=== PATIENT | male | born 1950 | race Caucasian/White ===

== ENCOUNTER 2020-02-10 13:45 | Outpatient (REF) | payer OTHER, SELFPAY ==
--- NOTE | 2020-02-10 | US_ITS ---
EXAMINATION: US EXTRACRANIAL CAROTID DUPLEX, BILATERAL CLINICAL INFORMATION: Stroke. COMPARISON: None TECHNIQUE: Real-time ultrasound and Doppler techniques (integrating B-mode 2-D vascular images, Doppler spectral analysis and color-flow Doppler imaging) were utilized to interrogate the extracranial carotid arteries, the vertebral arteries and proximal subclavian arteries bilaterally. The degree of stenosis is determined by criteria similar to NASCET. FINDINGS: RIGHT SIDE: 1. There is soft atherosclerotic plaque seen in the bifurcation/proximal ICA region. 2. The common carotid artery PSV proximally is 91.5 cm/s and distally 76.2 cm/s. 3. The proximal internal carotid artery velocities are 62.5 cm/s systolic and 13.4 cm/s diastolic. 4. The proximal external carotid artery PSV is 87.9 cm/s. 5. The vertebral artery shows antegrade flow. 6. The subclavian artery waveforms are normal. LEFT SIDE: 1. There is soft atherosclerotic plaque seen in the bifurcation/proximal ICA region. 2. The common carotid artery PSV proximally is 158 cm/s and distally 80.9 cm/s. 3. The proximal internal carotid artery velocities are 63.6 cm/s systolic and 8.6 cm/s diastolic. 4. The proximal external carotid artery PSV is 64.8 cm/s. 5. The vertebral artery shows antegrade flow. 6. The subclavian artery waveforms are normal. US/US carotid duplex BI IMPRESSION: 1. RIGHT: 0-49% stenosis. 2. LEFT: 0-49% stenosis. 3. Normal antegrade flow seen in both vertebral arteries.
== END 2020-02-10 13:46 | disposition home or self-care (01) ==
LOC: HO.HMGCX 13:45
PROVIDERS: Visit Provider Psychiatry & Neurology Neurology
DX: Z86.73 Personal history of transient ischemic attack (TIA), and cerebral infarction without residual deficits (principal)
CPT/HCPCS: 93880

== ENCOUNTER 2020-06-15 12:30 | Outpatient (REF) | payer OTHER, MEDICAID, SELFPAY ==
[2020-06-15 12:35] VITALS: BMI 23.8
[2020-06-15 12:36] VITALS: BP 141/69; PULSE 67; RESP 16; TEMP 36.9; O2SAT 96
== END 2020-06-15 12:31 | disposition home or self-care (01) ==
LOC: HO.MS 12:30
PROVIDERS: PCP Internal Medicine; Visit Provider Ophthalmology
PROC: (CPT 66821; principal; 2020-06-15 16:20)
DX: H26.491 Other secondary cataract, right eye (principal); H34.8310 Tributary (branch) retinal vein occlusion, right eye, with macular edema; Z96.1 Presence of intraocular lens; I10 Essential (primary) hypertension; Z79.899 Other long term (current) drug therapy; Z87.891 Personal history of nicotine dependence
CPT/HCPCS: 66821

== ENCOUNTER 2020-06-29 11:58 | Outpatient (REF) | payer OTHER, MEDICAID, SELFPAY ==
[2020-06-29 12:47] VITALS: BP 150/71; PULSE 53; RESP 16; TEMP 36.9; O2SAT 97
[2020-06-29 13:27] VITALS: BMI 29.2
== END 2020-06-29 11:59 | disposition home or self-care (01) ==
LOC: HO.MS 11:58
PROVIDERS: PCP Internal Medicine; Visit Provider Ophthalmology
PROC: (CPT 66821; principal; 2020-06-29 15:10)
DX: H26.492 Other secondary cataract, left eye (principal); H34.8310 Tributary (branch) retinal vein occlusion, right eye, with macular edema; Z96.1 Presence of intraocular lens; I10 Essential (primary) hypertension; Z87.891 Personal history of nicotine dependence; Z79.899 Other long term (current) drug therapy
CPT/HCPCS: 66821

== ENCOUNTER 2023-11-08 16:15 | Emergency (ER) | payer OTHER, MEDICAID, SELFPAY ==
--- NOTE | 2023-11-08 | ECG_ITS ---
Test Reason : WEAKNESS Blood Pressure : / mmHG Vent. Rate : 066 BPM Atrial Rate : 066 BPM P-R Int : 182 ms QRS Dur : 088 ms QT Int : 416 ms P-R-T Axes : 043 -26 014 degrees QTc Int : 436 ms Normal sinus rhythm Minimal voltage criteria for LVH, may be normal variant ( Omero product ) Borderline ECG When compared with ECG of 08-APR-2017 10:36, No significant change was found Referred By: Lane Collins Electronically Signed By:JAMES FORD
--- NOTE | ~2023-11-08 | CT_ITS ---
EXAMINATION: CT HEAD WITHOUT IV CONTRAST CT CERVICAL SPINE WITHOUT IV CONTRAST INDICATION: Fall from standing COMPARISON: None available. TECHNIQUE: Multidetector CT acquisitions of the head and cervical spine were obtained without IV contrast. Multiplanar reformats were acquired and utilized for image interpretation. This CT examination was performed using dose optimization techniques as appropriate, variously including the following: *Automated exposure control *Adjustment of mA and/or kV according to patient size (this includes techniques or standardized protocols for targeted exams where dose is matched to indication/reason for exam; i.e. extremities or head) *Use of iterative reconstruction technique FINDINGS: HEAD: No acute intracranial hemorrhage or infarct. The bond-white matter differentiation is preserved. Patchy hypodensity involving the periventricular and deep white matter compatible with small vessel ischemic disease. Encephalomalacic changes in the left frontal lobe. Diffuse widening of the sulci with associated ex focal dilation of the ventricles compatible with global cerebral atrophy. No midline shift or hydrocephalus. No acute extra-axial fluid collections. The osseous structures are unremarkable. Sequela of bilateral lens replacement. Otherwise, no acute orbital pathology. Mild mucosal thickening of the paranasal sinuses. The mastoid air cells are clear. Atherosclerotic calcifications of the bilateral carotid siphons and visualized intracranial vertebral arteries. CERVICAL SPINE: There is anatomic alignment of the vertebral bodies and posterior elements. There is no acute fracture and there is no acute subluxation. The craniocervical and atlantoaxial articulations are approximated. There is no prevertebral soft tissue swelling. No significant soft tissue abnormality within the neck. The visualized lung apices are clear. CT/CT cervical spine wo IV con IMPRESSION: -No acute intracranial abnormality. -No acute osseous abnormality within the cervical spine. Electronically signed by: Elisa Huggins MD 11/08/2023 06:58 PM EDT
--- NOTE | ~2023-11-08 | CT_ITS ---
EXAMINATION: CT CHEST WITHOUT CONTRAST CLINICAL INFORMATION: Mid anterior chest pain and weakness COMPARISON: Chest radiograph 02/28/2017 TECHNIQUE: Multidetector volumetric CT imaging of the chest was done. Axial MIP volume rendering provided. Sagittal and coronal reformatted images were obtained. This CT examination was performed using dose optimization techniques as appropriate, variously including the following: *Automated exposure control *Adjustment of mA and/or kV according to patient size (this includes techniques or standardized protocols for targeted exams where dose is matched to indication/reason for exam; i.e. extremities or head) *Use of iterative reconstruction technique DLP: 373 mGy-cm FINDINGS: LUNGS: Multiple scattered calcified pulmonary granulomas are present. No suspicious noncalcified lung masses or nodules. MEDIASTINUM: The mediastinum is normal. CORONARY ARTERY CALCIFICATION: None visualized on this study. PLEURA: There is no pleural effusion. No pleural mass or thickening. AXILLA: No lymphadenopathy. UPPER ABDOMEN: There are colonic diverticula present without diverticulitis. Contracted gallbladder. OSSEOUS STRUCTURES: Unremarkable. CT/CT chest wo IV con IMPRESSION: 1. A cause for the patient's chest pain and weakness has not been found. 2. Incidental note made of calcified pulmonary granulomas and colonic diverticulosis. Fleischner guidelines were followed. Electronically signed by: Sam Miller MD 11/08/2023 08:23 PM EDT
[2023-11-08 16:26] VITALS: BP 159/79; PULSE 69; O2SAT 97; BMI 24.6
--- NOTE | 2023-11-08 16:30 | PC.NURSE ---
weaving instructor services called, delay in care d/t only having one in hospital at this time
--- NOTE | 2023-11-08 16:31 | ED_ITS ---
HPI - General Adult General Chief complaint: Fall Stated complaint: feeling weak the last few days, fall today -loc Time Seen by Provider: 11/08/23 16:16 Source: patient and EMS Mode of arrival: EMS Limitations: language barrier (English-speaking foam molder utilized) History of Present Illness HPI narrative: Patient is a 73-year-old male who presents emergency department via EMS for evaluation. He reports that over the past few days he has been feeling weak. He endorses a trip on a who in the ground resulting in a fall outside of his home on the sidewalk which per EMS was witnessed by his neighbors, resulting in majority of impact to his chest, now having pain diffusely through the mid anterior chest. He denies any head strike or loss consciousness with this fall. He denies any headache, dizziness, lightheadedness, vision changes, neck pain, pain to his upper or lower extremities. Related Data Allergies Allergy/AdvReac Type Severity Reaction Status Date / Time No Known Allergies Allergy Unverified 11/08/23 16:28 [No Known Allergies*] Review of Systems 2 Review of Systems: Yes all other systems are reviewed and are negative [facility] Past Medical History Attestation statement: The following information was validated with the patient. Source: old records reviewed Social History Social History Smoked in Last 30 Days: No Use of substances other than those prescribed or required for medical reasons: No Advance Directives: No Advance Directives Information Provided: No Do you have a plan to hurt others: No Plan Physical Exam ED Vital Signs: Vital Signs - 24 hr 11/08/23 16:48 11/08/23 20:39 11/08/23 21:31 Temperature 98.5 F 98.5 F 98.5 F Pulse Rate 60 60 60 Respiratory Rate 12 16 16 Blood Pressure 176/71 H 165/64 H 165/64 H Pulse Oximetry 98 97 97 Oxygen Delivery Method Room Air Room Air Room Air BMI result Body Mass Index 24.6 Appearance: Alert.?Oriented to person, place and time. No acute distress.?Normal affect. Head: Normocephalic Eyes: Pupils equal, round and reactive to light. EOMI. Conjunctiva and sclera normal? No Reyes sign noted. No raccoon eyes noted ENT: No septal hematoma, nares patent bilaterally. External auditory canal normal tympanic membrane pearly bond and intact bilaterally. Dentition normal, no fractured teeth. No lesions or lacerations of oropharynx. Uvula midline. Moist mucous membranes. Neck: Normal inspection.? Neck supple.??No palpable tenderness, step-off, deformities. CVS: Heart sounds normal. Normal heart rate and rhythm.? Pulses normal.?? Respiratory: No respiratory distress.? Lung sounds clear to auscultation bilaterally. No palpable deformities of the chest wall. Abdomen: Soft and non-tender. Normoactive bowel sounds. ??No CVAT. Back: No midline thoracic or lumbar spine tenderness, step-offs, deformities Skin: Skin warm and dry.? Normal skin color.? ? Extremities: No lower extremity edema.? Full range of motion to bilateral upper and lower extremities Neuro: Moves all extremities spontaneously. Sensation intact bilaterally. CN II- XII intact. No focal neuro deficits. Course Reevaluation(s) Reevaluation #1: CT imaging unremarkable. Workup unremarkable. Ambulatory with a steady gait. Stable for discharge home, made aware of incidental finding calcified granulomas and outpatient follow-up with primary care doctor. Provided with return precautions. All questions answered. Medical Decision Making Medical Decision Making [facility] Narrative: Patient is a 73-year-old male with unclear past medical history, states that he takes a couple of medications daily but does not recall what they are for, does not know pharmacy uses, does not believe he is on any blood thinners. Had a reported mechanical trip and fall today as per HPI with resultant pain diffusely through his anterior chest. Reports he has been feeling a bit weak over the past few days, but denies any prodromal symptoms prior to the fall. Will obtain serum labs and radiographic imaging. Will medicate acetaminophen Differential Diagnosis Differential Diagnoses: The differential diagnosis associated with the presentation includes (ICH, SDH, fracture, subluxation, rib fracture, ACS, rib contusion) Admission/Observation Consideration of admission/observation: Escalation of care including admission/observation considered Lab Data [facility] Lab Attestation statement: I reviewed the patient's lab results. CBC is without leukocytosis anemia or thrombocytopenia. No electrolyte derangement. No DENNIS. LFTs unremarkable. Magnesium within normal range. High sensitive troponin below detectable limits. Alcohol level negative. Viral serologies negative. 11/08/23 17:09 11/08/23 17:09 Labs: Lab Results 11/08/23 Range/Units 17:09 WBC 8.9 (4.8-10.8) X10*3/uL RBC 4.33 L (4.60-5.80) X10*6/uL Hgb 14.0 (14.0-18.0) g/dl Hct 41.4 L (42.0-52.0) % MCV 95.6 (80.0-98.0) fL MCH 32.3 (27.0-33.0) pg MCHC 33.8 (31.0-36.0) g/dl RDW 12.6 (11.0-16.0) % Plt Count 187 (160-400) X10*3/uL MPV 10.3 (9.4-12.4) fL Immature Gran % (Auto) 0.3 (0.0-0.4) % Neut % (Auto) 71.0 (45-73) % Lymph % (Auto) 10.3 L (20-40) % [place] % (Auto) 6.2 (2-11) % Eos % (Auto) 11.9 H (0-4) % Baso % (Auto) 0.3 (0-2) % Lymph # (Auto) 0.9 L (1.2-4.9) X10*3/uL [place] # (Auto) 0.6 (0.1-1.2) X10*3/uL Eos # (Auto) 1.1 H (0.0-0.4) X10*3/uL Baso # (Auto) 0.0 (0.0-0.2) X10*3/uL Abs Immat Gran (auto) 0.03 (0.00-0.03) X10*3/uL Absolute Neuts (auto) 6.4 (2.0-8.3) x10*3/uL Absolute Nucleated RBC 0.000 (0.0-0.012) X10*3/uL Nucleated RBC % (auto) 0.0 (0.0-0.2) /100WBC PT 12.4 (10.9-12.4) SEC INR 1.1 (0.9-1.1) Sodium 142 (135-145) mmol/L Potassium 4.9 (3.3-5.1) mmol/L Chloride 105 (96-108) mmol/L Carbon Dioxide 28 (22-29) mmol/L Anion Gap 14 (12-20) BUN 17 H (9-16) mg/dL Creatinine 1.11 (0.5-1.4) mg/dL Estim Creat Clear Calc 45.7 Estimated GFR > 60 Random Glucose 99 (60-115) mg/dL Calcium 9.7 (8.4-10.2) mg/dL Magnesium 2.0 (1.6-2.6) mg/dL Total Bilirubin 0.5 (0.0-1.0) mg/dL AST 22 (5-37) U/L ALT 24 (0-40) U/L Alkaline Phosphatase 64 (39-117) U/L Troponin I High Sens < 2.7 (<3.5-35.0) ng/L B-Natriuretic Peptide 34 (<100) pg/mL Total Protein 7.7 (6.5-8.0) g/dL Albumin 4.1 (3.5-5.0) g/dL Ethyl Alcohol < 10 mg/dL Influenza Type A (PCR) NEGATIVE (Negative) Influenza Type B (PCR) NEGATIVE (Negative) RSV RNA Qual (PCR) NEGATIVE (Negative) SARS-CoV-2 RNA (RT-PCR) NEGATIVE (Negative) Independent Interpretation I performed an independent interpretation of an: EKG Interpretation: Rate: 66 Rhythm:? Normal sinus rhythm Normal P waves.? Normal SEKOU.?? Normal QRS complex.?? ST T wave :??No ST elevation, no ST depression [id number] prior studies:? Unavailable for review The study has been interpreted contemporaneously by me. Radiology Impression Discussion of test interpretation with radiology: I have reviewed the radiologist's reading. Radiologist Impression: CT/CT head/brain wo IV con IMPRESSION: -No acute intracranial abnormality. -No acute osseous abnormality within the cervical spine. CT/CT chest wo IV con IMPRESSION: 1. A cause for the patient's chest pain and weakness has not been found. 2. Incidental note made of calcified pulmonary granulomas and colonic diverticulosis. Independent Historian Clinical information obtained from an independent historian. History obtained from or confirmed by: EMS Discharge Plan Discharge Clinical Impression: Contusion of chest, Acute head injury without loss of consciousness Patient Disposition: Home, Self-Care Instructions: Head Injury (ED), Rib Contusion (ED) Additional Instructions: Imaging today does not show any evidence of bleeding in the brain, fracture to the skull neck or chest. All of which is very reassuring. There was an incidental finding on your chest CT of calcified pulmonary granulomas, a benign condition but can result in difficulties with breathing, you should make your primary care doctor aware of this You can develop a lot of pain due to inflammation in the setting of an injury such as what you sustained today. You can take Tylenol 500 mg, 2 tablets (1,000mg) every 4-6 hours as needed for pain, but not to exceed 3 doses daily (3,000mg).? Referrals: Physician,Unknown J [Primary Care Provider] - Interventions: ED Discharge Assessment Last Done: 11/08/23 21:31 Discharge Date/Time: 11/08/23 21:33 Print Language: English
[2023-11-08 16:48] VITALS: BP 176/71; PULSE 60; RESP 12; TEMP 36.9; O2SAT 98
[2023-11-08 17:15] LABS: MANUAL DIFF FLAG NO
[2023-11-08 17:21] LABS: Basophils Percent Auto 0.3 % (0-2); Eosinophils Absolute Auto 1.1 X10*3/uL (0.0-0.4); Eosinophils Percent Auto 11.9 % (0-4); Hematocrit 41.4 % (42.0-52.0); Imm Gran Abs Auto 0.03 X10*3/uL (0.00-0.03); Imm Gran Pct Auto 0.3 % (0.0-0.4); Lymphocytes Absolute Auto 0.9 X10*3/uL (1.2-4.9); Lymphocytes Percent Auto 10.3 % (20-40); Mean Corpuscular HGB Conc 33.8 g/dl (31.0-36.0); Mean Corpuscular Hemoglobin 32.3 pg (27.0-33.0); Mean Corpuscular Volume 95.6 fL (80.0-98.0); Mean Platelet Volume 10.3 fL (9.4-12.4); Monocytes Absolute Auto 0.6 X10*3/uL (0.1-1.2); Monocytes Percent Auto 6.2 % (2-11); Neutrophils Absolute Auto 6.4 x10*3/uL (2.0-8.3); Platelet Count 187 X10*3/uL (160-400); Red Blood Count 4.33 X10*6/uL (4.60-5.80); Red Cell Distribution Width 12.6 % (11.0-16.0); White Blood Count 8.9 X10*3/uL (4.8-10.8)
[2023-11-08 17:25] LABS: INTERNATIONAL NORM RATIO 1.1 (0.9-1.1); Prothrombin Time 12.4 SEC (10.9-12.4)
[2023-11-08 17:33] LABS: Ethanol < 10 mg/dL
[2023-11-08 17:34] LABS: Alanine Aminotransferase 24 U/L (0-40); Albumin Level 4.1 g/dL (3.5-5.0); Alkaline Phosphatase 64 U/L (39-117); Anion Gap 14 (12-20); Aspartate Amino Transferase 22 U/L (5-37); Bilirubin Total 0.5 mg/dL (0.0-1.0); Blood Urea Nitrogen 17 mg/dL (9-16); Calcium 9.7 mg/dL (8.4-10.2); Carbon Dioxide 28 mmol/L (22-29); Chloride 105 mmol/L (96-108); Creatinine Clr Calc Pharmacy 45.7; Estimated Glomerular Filt Rate > 60; Glucose Random 99 mg/dL (60-115); Potassium 4.9 mmol/L (3.3-5.1); Sodium 142 mmol/L (135-145); Total Protein 7.7 g/dL (6.5-8.0)
[2023-11-08 17:42] LABS: Troponin-I High Sensitivity < 2.7 ng/L (<3.5-35.0)
[2023-11-08 17:58] LABS: Influenza A PCR NEGATIVE (Negative); Influenza B PCR NEGATIVE (Negative); Resp Syncy Virus RNA Qual PCR NEGATIVE (Negative); SARS COV2 PCR INHOUSE NEGATIVE (Negative)
--- OUTSIDE RECORDS SUMMARY | 2023-11-08 18:13 | XMS_ITS | Continuity of Care Document ---
Author Organization [facility] Address [address] [place] [id number]- Care Team Providers Care Health And Wellness Advisor Name Role Phone Vicenta Ramírez MD Primary Care Physician [place] [facility] [place] 10[place]20 - 12/25/20 [facility] [address] [place] [id number] Attending Physician: Willie Casas MD Admitting Physician: Willie Casas MD Referring Physician: Vicenta Ramírez MD Allergies, Adverse Reactions, Alerts Substance Reaction Severity Status NKA Active Immunizations Given and Recorded Vaccine Date Status Refusal Reason SARS-CoV-2 (COVID-19) mRNA BNT-162b2 vac 07/09/20 Given SARS-CoV-2 (COVID-19) mRNA BNT-162b2 vac 06/18/20 Given tetanus/diphtheria/pertussis, acel(Tdap) 02/22/18 Given Medications Calcium 600 +D oral tablet 1 tablet, By Mouth, 3 times a day, 0 Refills, Maintenance Start Date: 02/13/13 Status: Ordered codeine-guaifenesin 10 mg-100 mg/5 ml oral syrup 10 mL, By Mouth, Every 4 hours, PRN for cough, # 100 mL, 0 Refills, Maintenance, Syrup Start Date: 01/31/13 Status: Ordered Donepezil By Mouth, Daily at bedtime, 0 Refills, Maintenance, 05/24/16 11:36:58 Start Date: 05/24/16 Status: Ordered Metoprolol 0 Refills, Maintenance Start Date: 02/13/13 Status: Ordered Naproxen = 500 mg, By Mouth, 2 times a day, PRN as needed for pain, 0 Refills, Maintenance Start Date: 01/26/11 Status: Ordered PEG-3350 with Electrolytes (Eqv-GoLYTELY) oral powder for reconstitution See Instructions, Mix powder with water according to package intructions. Drink all of the prep fluid on the evening befoer your colonoscopy., # 1 each, 0 Refills, Maintenance, 12/03/20 18:15:00 EDT,Partial fill upon patient request if the prescript... Start Date: 12/03/20 Status: Ordered Percocet-5/325 325 mg-5 mg oral tablet 1 to 2 tablet, By Mouth, Every 4 hours, PRN Pain , Severe, # 12 tablet, 0 Refills, Maintenance Start Date: 11/28/10 Status: Ordered Percocet-5/325 325 mg-5 mg oral tablet 2, tablet, By Mouth, Every 6 hours, PRN, # 10 tablet, Refills 0, Tot. Refills 0, Maintenance, for pain, 02/23/18 0:19:52 EST, Print Requisition, Tablet Start Date: 02/23/18 Status: Ordered Senna 1 tab, By Mouth, 2 times a day, 0 Refills, Maintenance Start Date: 03/16/11 Status: Ordered Social History Social History Type Response Smoking Status Former smoker, quit more than 30 days ago entered on: 07/09/18 Sex
--- OUTSIDE RECORDS SUMMARY | 2023-11-08 18:13 | XMS_ITS | Continuity of Care Document ---
Author Organization [facility] Address [address] [place] [id number]- Care Team Providers Care Steel Post Installer Name Role Phone Matt Schumacher MD Primary Care Physician Encounter [place] Date(s): 04/27/21 - 04/27/[address] [id number] Discharge Disposition: A-D/C Home Attending Physician: Willie Casas MD Admitting Physician: Willie Casas MD Referring Physician: Willie Casas MD Allergies, Adverse Reactions, Alerts No Known Allergies Immunizations Given and Recorded Vaccine Date Status [...] on the evening befoer your colonoscopy., # 4,000 mL, 0 Refills, Maintenance, 04/26/21 9:12:00 EDT, [id number], Please fill with ANY... Start Date: 04/26/21 Status: Ordered Percocet-5/325 325 mg-5 mg oral [...] Refills, Maintenance Start Date: 03/16/11 Status: Ordered Procedures Procedure Date Related Diagnosis Body Site Status Colonoscopy with polypectomy 04/27/21 Completed Vital Signs Most recent to oldest [Reference Range]: 1 2 3 Height 160 cm (04/27/21 12:59 PM) Weight 63.5 kg (04/27/21 12:59 PM) Oxygen Saturation [94-100 %] 100 % (04/27/21 3:46 PM) 98 % (04/27/21 12:59 PM) Pulse Rate [55-90 bpm] 63 bpm (04/27/21 12:59 PM) Body Mass Index [18.5-24.99] 24.8 (04/27/21 12:59 PM) Blood Pressure [90-138/55-84 mm Hg] 116/59mm Hg (04/27/21 3:46 PM) 189/78mm Hg *H* (04/27/21 12:59 PM) Respiratory Rate [16-30 br/min] 16 br/min (04/27/21 3:46 PM) 16 br/min (04/27/21 12:59 PM) Temperature [96.8-100.4 DegF] 98.7 DegF (04/27/21 12:59 PM) Mode of Delivery (Oxygen) Room air (04/27/21 4:10 PM) Room air (04/27/21 3:46 PM) Room air (04/27/21 12:59 PM) Blood pressure sites Arm, left (04/27/21 3:46 PM) Arm, left (04/27/21 12:59 PM) Temperature Route Temporal (04/27/21 12:59 PM) Weight Obtained Via Patient/family state d (04/27/21 12:59 PM) Social History Social History Type Response Smoking Status Former smoker, quit more than 30 days ago entered on: 07/09/18 Sex
--- OUTSIDE RECORDS SUMMARY | 2023-11-08 18:13 | XMS_ITS | Continuity of Care Document ---
Author Organization [facility] Address [address] [place] [id number]- Care Team Providers Care Radio Station Manager Name Role Phone Not on Staff, PCP Primary Care Physician Unavail able Encounter [facility] Date(s): 11/23/22 - 11/24/[address] [address]- Encounter Diagnosis Abdominal pain(Final) - 11/23/22 Discharge Disposition: A-D/C Home Attending Physician: Leslie Rese MD Admitting Physician: Leslie Rees MD Referring Physician: Not on Staff, Referring MD Allergies, Adverse Reactions, Alerts No Known [...] mL, 0 Refills, Maintenance, 04/26/21 9:12:00 EDT, [id number], Please fill with ANY... Start Date: 04/26/21 [...] Refills, Maintenance Start Date: 03/16/11 Status: Ordered Results Radiology Reports * Exam Date Time Procedure Performing Provider Status 11/23/22 4:45 PM Chest 2 Views Frontal and Lat Venkatesh Ojeda (Verified) Notes: (Chest 2 Views Frontal and Lat) Reason For Exam: Stroke;Other: RESULT: Chest 2 Views Frontal and Lat Chest 2 Views Frontal and Lat Hx of Present Illness: Stroke r o; Reason: Other:; Stroke; Clinical Question(s): CHF; Order Comment: they moved patient from room to gallardo 11 23 2022 16:21:54 EDT COMPARISON: Chest radiograph 05/24/2016 and priors. FINDINGS: LINES AND TUBES: None. LUNGS AND PLEURA: Large lung volumes with flattening of the bilateral hemidiaphragms. Lateral bilateral lower lobe calcified granulomas, stable. Otherwise, lungs are clear. No pleural effusion. No pneumothorax. HEART, MEDIASTINUM AND KANDI: Heart is normal in size. Normal mediastinal and hilar contour. BONES AND SOFT TISSUES: No acute abnormality. IMPRESSION: Findings consistent with COPD. No focal consolidation, pleural effusion, or pneumothorax. I have personally reviewed the images and I agree with this report. WSN: [id number] Ordering Physician: Delfino Walker Dictated By: Thong Ny MD Dictated Date/Time: 11/23/22 4:49 pm Reviewed By: Sam Dominguez MD Signed By: Sam Dominguez MD Signed Date/Time: 11/23/22 4:54 pm Transcribed By: MICHAEL Transcribed Date/Time: 11/23/22 4:47 pm * Exam Date Time Procedure Performing Provider Status 11/23/22 4:[address] Angio Neck Hyperacute Stroke Andrea Adames; Auth (Verified) Notes: (CT Angio Neck Hyperacute Stroke) Reason For Exam: Aneurysm, neck vessel(s);Other: RESULT: CT Angio Neck Hyperacute Stroke CT Angio Head Hyperacute Stroke, CT Angio Neck Hyperacute Stroke Reason: Other:; Stroke; Clinical Question(s): Other:; Hematoma Aneurysm / Other: TECHNIQUE: CT angiogram of the head and neck was performed after bolus administration of intravenous contrast. 100 mL of Omnipaque 300 was administered intravenously. Coronal and sagittal MIP reformatted images were obtained. Additional 3-D images were created on a separate workstation under concurrent supervision by the attending radiologist. All stenoses are measured using NASCET criteria. Weight-based protocol using automatic tube modulation was used to optimize exposure parameters. RADIATION DOSE PARAMETERS: CTDIvol Body: 13.60 mGy, DLP Body: 446 mGy*cm. CTDIvol Head: 48.30 mGy, DLP Head: 773 mGy*cm. COMPARISON: Noncontrast CT head performed concurrently. FINDINGS: There is a 3 vessel arch. The supraaortic proximal great neck vessels appear normal in caliber and appearance. No hemodynamically significant stenosis. The right common carotid artery is normal in caliber. The right carotid bulb is normal. The right proximal ICA shows 0% stenosis by NASCET criteria. The left proximal common carotid artery is degraded by beam hardening artifacts. Otherwise it is normal in caliber. The left carotid bulb is normal. The left proximal ICA shows 0% stenosis by NASCET criteria. Right vertebral artery: The origin is degraded by beam hardening artifacts. Otherwise patent without stenosis. Left vertebral artery: Dominant. Patent without stenosis. Cervical spine: No acute pathology. Diffuse spondylosis. Soft tissues and lung apices: The visualized upper lungs are clear. Bilateral thyroid lobes are normal. There is no definite abnormality throughout the soft tissue neck. [place]: Concurrent CT of head showed no acute pathology. Generalized volume loss and bilateral periventricular hypodensities are noted. Status post bilateral lens extractions. There is mucosal thickening within the ethmoid and maxillary sinuses. Bilateral internal carotid arteries at the skull base have mild mural calcifications. No definite stenosis is seen. Bilateral posterior communicating arteries are not visualized. No posterior communicating artery aneurysm is seen. The left REBEL is slightly hypoplastic. Otherwise ACAs, MCAs and their branches are patent. No stenosis or vessel cut off is seen. No definite aneurysm is noted. Bilateral intracranial vertebral arteries show no definite stenosis. The vertebrobasilar junction is normal. The basilar artery is normal. No stenosis or dissection is seen. There is no basilar tip aneurysm. Bilateral customer counter associate and their branches are patent. The superior sagittal sinuses, the straight sinus, bilateral transverse and sigmoid sinuses: Patentwithout dural sinus thrombosis. IMPRESSION: No cutoff or high-grade stenosis of the major branches of the intracranial arteries. No aneurysm, stenosis, or vascular malformations present. The right proximal internal carotid artery show no significant stenosis by NASCET criteria. The left proximal internal carotid artery show no significant stenosis by NASCET criteria. The right cervical vertebral artery shows no significant stenosis. The left cervical vertebral artery shows no significant stenosis. REFERENCE: NASCET Criteria: The degree of internal carotid stenosis is based on NASCET Criteria: Normal: No stenosis Mild: Less than 50% stenosis Moderate: 50-69% stenosis Severe: 70-99% stenosis Total occlusion: No detectable patent lumen. WSN: [id number] Ordering Physician: Delfino Walker Dictated By: Moe Sam MD Dictated Date/Time: 11/23/22 5:14 pm Reviewed By: Moe Sam MD Signed By: Moe Sam MD Signed Date/Time: 11/23/22 5:14 pm Transcribed By: MICHAEL Transcribed Date/Time: 11/23/22 5:11 pm * Exam Date Time Procedure Performing Provider Status 11/23/22 4:[address] Angio Head Hyperacute Stroke Andrea Adames; Auth (Verified) Notes: (CT Angio Head Hyperacute Stroke) Reason For Exam: Stroke;Other: RESULT: CT Angio Head Hyperacute Stroke CT Angio Head Hyperacute Stroke, CT Angio Neck Hyperacute Stroke Reason: Other:; Stroke; Clinical Question(s): Other:; Hematoma Aneurysm / Other: TECHNIQUE: CT angiogram of the head and neck was performed after bolus administration of intravenous contrast. 100 mL of Omnipaque 300 was administered intravenously. Coronal and sagittal MIP reformatted images were obtained. Additional 3-D images were created on a separate workstation under concurrent supervision by the attending radiologist. All stenoses are measured using NASCET criteria. Weight-based protocol using automatic tube modulation was used to optimize exposure parameters. RADIATION DOSE PARAMETERS: CTDIvol Body: 13.60 mGy, DLP Body: 446 mGy*cm. CTDIvol Head: 48.30 mGy, DLP Head: 773 mGy*cm. COMPARISON: Noncontrast CT head performed concurrently. FINDINGS: There is a 3 vessel arch. The supraaortic proximal great neck vessels appear normal in caliber and appearance. No hemodynamically significant stenosis. The right common carotid artery is normal in caliber. The right carotid bulb is normal. The right proximal ICA shows 0% stenosis by NASCET criteria. The left proximal common carotid artery is degraded by beam hardening artifacts. Otherwise it is normal in caliber. The left carotid bulb is normal. The left proximal ICA shows 0% stenosis by NASCET criteria. Right vertebral artery: The origin is degraded by beam hardening artifacts. Otherwise patent without stenosis. Left vertebral artery: Dominant. Patent without stenosis. Cervical spine: No acute pathology. Diffuse spondylosis. Soft tissues and lung apices: The visualized upper lungs are clear. Bilateral thyroid lobes are normal. There is no definite abnormality throughout the soft tissue neck. [place]: Concurrent CT of head showed no acute pathology. Generalized volume loss and bilateral periventricular hypodensities are noted. Status post bilateral lens extractions. There is mucosal thickening within the ethmoid and maxillary sinuses. Bilateral internal carotid arteries at the skull base have mild mural calcifications. No definite stenosis is seen. Bilateral posterior communicating arteries are not visualized. No posterior communicating artery aneurysm is seen. The left REBEL is slightly hypoplastic. Otherwise ACAs, MCAs and their branches are patent. No stenosis or vessel cut off is seen. No definite aneurysm is noted. Bilateral intracranial vertebral arteries show no definite stenosis. The vertebrobasilar junction is normal. The basilar artery is normal. No stenosis or dissection is seen. There is no basilar tip aneurysm. Bilateral customer counter associate and their branches are patent. The superior sagittal sinuses, the straight sinus, bilateral transverse and sigmoid sinuses: Patentwithout dural sinus thrombosis. IMPRESSION: No cutoff or high-grade stenosis of the major branches of the intracranial arteries. No aneurysm, stenosis, or vascular malformations present. The right proximal internal carotid artery show no significant stenosis by NASCET criteria. The left proximal internal carotid artery show no significant stenosis by NASCET criteria. The right cervical vertebral artery shows no significant stenosis. The left cervical vertebral artery shows no significant stenosis. REFERENCE: NASCET Criteria: The degree of internal carotid stenosis is based on NASCET Criteria: Normal: No stenosis Mild: Less than 50% stenosis Moderate: 50-69% stenosis Severe: 70-99% stenosis Total occlusion: No detectable patent lumen. WSN: [id number] Ordering Physician: Delfino Walker Dictated By: Moe Sam MD Dictated Date/Time: 11/23/22 5:14 pm Reviewed By: Moe Sam MD Signed By: Moe Sam MD Signed Date/Time: 11/23/22 5:14 pm Transcribed By: MICHAEL Transcribed Date/Time: 11/23/22 5:11 pm * Exam Date Time Procedure Performing Provider Status 11/23/22 4:[address] Head-Hyper Acute Stroke Ankit Wilson; Auth (Verified) Notes: (CT Head-Hyper Acute Stroke) Reason For Exam: Neuro deficit, acute, stroke suspected;Other: RESULT: CT Head-Hyper Acute Stroke CT Head-Hyper Acute Stroke Reason: Other:; Neuro deficit, acute, stroke suspected; Clinical Question(s): Other:; Hematoma Infarction. TECHNIQUE: Incremental CT without contrast through the head was formatted in axial and coronal plane. Weight-based protocol using automatic tube modulation was performed to optimize scan parameters. COMPARISON: 05/24/2016. FINDINGS: BRAIN and EXTRA-AXIAL SPACES: No parenchymal hemorrhage, midline shift or mass effect. Parada-white matter differentiation is well preserved. No acute infarct. Old lacunar infarct in the left basal ganglia new compared to previous. Ventricles, sulci and basilar cisterns are age appropriate. Mild low-density white matter changes likely chronic small vessel ischemic in nature. No subarachnoid hemorrhage, subdural or epidural collections. CALVARIUM, SKULL BASE AND SOFT TISSUES: No fractures or suspicious bony lesions. There is 7 mm of anterior subluxation of the anterior arch of the C1 vertebral body relative the tothe odontoid process is only partially included, unchanged compared to previous cervical spine CT in 2017 suggesting chronic instability. There is moderate to severe canal stenosis. Mild mucosal thickening along the floor of the right frontal and nasal frontal recesses bilaterallywith moderate thickening and partial opacification of the bilateral ethmoid air cells. There is miop-zi-zbzemrgp thickening and lobulated retention cyst or polyps in the inferior maxillary sinuses. Mild mucosal thickening in the sphenoid sinuses. Mastoid air cells are clear. Visualized orbits and globes are intact status post bill moore's slough lens extractions. The extracranial soft tissues are unremarkable. IMPRESSION: 1. No acute intracranial process. 2. Worsening paranasal sinus disease. 3. Chronic findings as noted. WSN: [id number] Ordering Physician: Delfino Walker Dictated By: Lucian Bailey MD Dictated Date/Time: 11/23/22 4:20 pm Reviewed By: Lucian Bailey MD Signed By: Lucian Bailey MD Signed Date/Time: 11/23/22 4:20 pm Transcribed By: MICHAEL Transcribed Date/Time: 11/23/22 4:12 pm Vital Signs Most recent to oldest [Reference Range]: 1 2 3 Oxygen Saturation [94-100 %] 99 % (11/24/22 4:54 AM) 95 % (11/24/22 1:40 AM) 96 % (11/23/22 10:17 PM) Pulse Rate [55-90 bpm] 91 bpm *H* (11/24/22 4:54 AM) 51 bpm *L* (11/24/22 1:40 AM) 58 bpm (11/23/22 10:17 PM) Blood Pressure [90-138/55-84 mm Hg] 120/69mm Hg (11/24/22 4:54 AM) 185/74mm Hg *H* (11/24/22 1:40 AM) 178/82mm Hg *H* (11/23/22 10:17 PM) Respiratory Rate [16-30 br/min] 20 br/min (11/24/22 4:54 AM) 20 br/min (11/24/22 1:40 AM) 19 br/min (11/23/22 10:17 PM) Temperature [96.8-100.4 DegF] 98.2 DegF (11/24/22 4:54 AM) 97.6 DegF (11/24/22 1:40 AM) 98.2 DegF (11/23/22 10:17 PM) Mode of Delivery (Oxygen) Room air (11/24/22 4:54 AM) Room air (11/24/22 1:40 AM) Room air (11/23/22 10:17 PM) Blood pressure sites Arm, right (11/24/22 4:54 AM) Arm, right (11/24/22 1:40 AM) Temperature Route Oral (11/24/22 4:54 AM) Oral (11/24/22 1:40 AM) Oral (11/23/22 10:17 PM) Social History Social History Type Response Smoking Status Former smoker, quit more than 30 days ago entered on: 07/09/18 Sex EKG study * Event Display: EKG Authored Date: [id number] * Event Display: ECG 12-Lead Authored Date: [id number] Please click on pdf link to open report * Event Display: ECG 12-Lead Authored Date: [id number] Ventricular Rate: 58 BPM Atrial Rate: 58 BPM P-R Interval: 156 ms QRS Duration: 98 ms Q-T Interval: 458 ms QTC Calculation(Bazett): 449 ms P [place]: 83 degrees R [place]: -17 degrees T [place]: 25 degrees Sinus bradycardia Otherwise normal ECG When compared with ECG of 09-JUL-2018 02:18, No significant change was found Confirmed by RAE MIRZA MD ([id number]) on 11/24/2022 8:49:17 AM [place]: RAE MIRZA MD Consult note * Luma Bertrand NP: PERFORM Event Display: Consultation Note Authored Date: [id number] Patient: ??STEVEN NÚÑEZ ? Age:??72 Years?Sex:??Male?:??1950?? Chief Complaint/Reason for Consultation sudden onset of dizziness and weakness History of Present Illness Steven Núñez is a 72-year-old Indian speaking male presenting to the emergency department??with??dizziness, vomiting and diarrhea that started at??noon??the day of presentation.?? Quality Improvement Engineer used for??interview and exam.?? Patient unable to provide??history, patient??restless during exam stating he needs??to??urinate and to use the bathroom.?? Patient unable to describe his dizziness.?? On exam patient is alert to person,??cranial nerves II through XII intact,??strength 5/5 in all extremities, sensation intact to light touch in all extremities. ??Coordination with sounwd-ze-ptkc??intact.?? Gait testing deferred. ?? Past medical history obtained from chart review including??TBI, cognitive decline, cognitive impairment ?? Blood pressure 174/79 Rqmiw-cs-dqco glucose 151 ?? Noncontrast head CT without acute intracranial finding CTA head and neck without high-grade stenosis or occlusion ?? Stroke Time Course: Time patient last seen well (not time patient was found):??Patient poor historian??unclear??last seen well??patient states symptoms started??at??noon on November 23 Time patient arrived in ED:??15:49 Time neurology consulted/paged:??15:44 Time patient is seen by neurology:??15:[address] head/interpreted:??16:11 Reason for thrombolytic??exclusion if not given:??Out of window Thrombectomy:??No LVO Review of Systems ?General: Denies?? fatigue, fever, chills ?Skin: denies rash ?Eyes: denies visual changes, blurry vision ?ENT: denies hearing changes ?Cardiovascular: denies chest pain ?Respiratory: denies SOB ?GI/: Reports nausea vomiting diarrhea??denies abdominal pain ? denies loss of bladder or bowel function ?Musculoskeletal: denies muscle weakness, swelling ?Neurological:??Reports dizziness ?? denies headache,loss of vision, blurry vision, hearing changes, trouble swallowing, slurring, word finding difficulties, weakness, paresthesias, tremors, seizure, numbness/tingling/loss of sensation Objective Vital Signs?? No qualifying data available. ?? Pain Scores 1 - 10 Pain Scale Score: 0 (16:19) ?? Precautions No Precautions documented.? NIH Stroke Scale Level of Consciousness for Stroke Scale: Alert (11/23/22 16:06:00) Response Month/Age: Answers both questions correctly (11/23/22 16:06:00) Response Open/Close Eyes: Performs both tasks correctly (11/23/22 16:06:00) Best Gaze: Normal (11/23/22 16:06:00) Visual: No visual loss (11/23/22 16:06:00) Facial Palsy: Normal symmetrical movements (11/23/22 16:06:00) Motor Function Left Arm: No drift (11/23/22 16:06:00) Motor Function Right Arm: No drift (11/23/22 16:06:00) Motor Function Left Leg: No drift (11/23/22 16:06:00) Motor Function Right Leg: No drift (11/23/22 16:06:00) Limb Ataxia: Absent (11/23/22 16:06:00) Sensory: Normal; no sensory loss (11/23/22 16:06:00) Best Language: No aphasia (11/23/22 16:06:00) Dysarthria NIH Stroke Scale: Normal (11/23/22 16:06:00) Extinction and Inattention: No abnormality (11/23/22 16:06:00) NIH Stroke Scale Score: 0 (11/23/22 16:06:00) ?? [place] Coma Scale [place] Coma Score: 15 (11/23/22 16:19:00) Motor Response-Adult: Obeys commands (11/23/22 16:19:00) Response Eye Opening: Spontaneously (11/23/22 16:19:00) Verbal Response-Adult: Oriented and converses (11/23/22 16:19:00) ? Mobility & Ambulation Level Mobility & Ambulation Level?? No qualifying data available. ?? Therapeutic Activity Therapeutic Activities/Mobility/Balance?? No qualifying data available. ? Physical Exam General Exam Appearance: Laying in ED stretcher, restless ?? HEENT: Normocephalic, atraumatic. No abrasions or ecchymosis. Conjunctiva without injection. PERRL.EOMI. Lids without ptosis. Nares patent. Mouth normal. Tongue midline. Neck supple ?? Cardiac: Regular rate and rhythm ?? Respiratory: Normal inspiration and expiration ?? Neurologic: Mentation: Awake, alert. Patient is oriented to person. Speech is clear and fluent. Follows simple command. Able to repeat today is sheri. Able to name objects. internet merchant: PERRL. EOMI. No nystagmus. VFF to confrontation. Smile symmetric, no droop. Tongue midline anduvula rises symmetrically. Facial sensation in tact to light touch. Hearing acuity in tact to voice. Lateral head deviation and shoulder shrug 5/5?? Motor: Normal bulk/tone. Strength 5/5 UEs and LEs. Clerical Support Specialist equal. No pronator drift. Sensation: In tact to light touch of UEs and LEs, no extinction to DTS Coordination: Finger to nose smooth Gait:??deferred ?? NIH Stroke Scale:??0 ?? 1a. LOC (0-alert; 1-not alert, arousable; 2-not alert, obtunded; 3- nonresponsive): _0 1b. Questions (0-answers two correctly; 1-answers one correctly; 2-answers neither correctly): _0 1c. Commands (0-perform two tasks; 1-performs one task; 2-performs neither tasks): _0 2. Gaze (0-normal; 1-partial gaze palsy; 2-forced deviation): _0 3. Visual schuler (0-no visual loss; 1-partial hemianopsia; 2-complete hemianopsia; 3-bilateral hemianopsia): _0 4. Facial palsy (0-normal; 1-minor palsy; 2-partial palsy; 3-complete paralysis): _0 5a. Motor left arm (0-normal; 1-drift before 10 sec; 2-falls before 10 sec; 3-no effort against gravity; 4-no movement): _0 5b. Motor right arm (0-normal; 1-drift before 10 sec; 2-falls before 10 sec; 3- no effort against gravity; 4-no movement): _0 6a. Motor left leg (0-normal; 1-drift before 5 sec; 2-falls before 5 sec; 3-no effort against gravity; 4-no movement): _0 6b. Motor right leg (0-normal; 1-drift before 5 sec; 2-falls before 5 sec; 3-no effort against gravity; 4-no movement): _0 7. Ataxia (0-absent; 1-one limb; 2-two limbs): _0 8. Sensory (0-absent; 1-mild/moderate; 2-severe/total loss): _0 9. Language (0-normal; 1-mild/moderate loss; 2-severe aphasia; 3-mute): _0 10. Dysarthria (0-normal; 1-mild/moderate; 2-severe): _0 11. Extinction (0-normal; 1-mild-one modality; 6-leldua-fni modality): _0 ?? NIHSS Total: _0 Assessment/Plan Steven Núñez is a 72-year-old Indian speaking male presenting to the emergency department??with??dizziness, vomiting and diarrhea that started at??noon??the day of presentation.?? Quality Improvement Engineer used for??interview and exam.?? Patient unable to describe his dizziness. ??No nystagmus and no focal or lateralizing findings on exam ?? Past medical history obtained from chart review including??TBI, cognitive decline, cognitive impairment ?? Blood pressure 174/79 Ovqvt-te-unlq glucose 151 ?? Noncontrast head CT without acute intracranial finding CTA head and neck without high-grade stenosis or occlusion ?? Impression: uncharacteristic dizziness and nonfocal exam with low suspicion for stroke??or TIA. ??Patient reporting dizziness in the setting of??nausea, vomiting and diarrhea.?? Possible dehydration ?? Recommending: Continue home medications including aspirin 81 mg daily and atorvastatin 40 mg No further stroke work-up??recommended at this time Supportive care per primary team Neurology signing off ?? Discussed with Dr Alvarenga Messaged primary team??on [facility] [place][note 2] recommendations Histories Allergies Allergies ?(Active and Proposed Allergies Only) NKA? (Severity: Unknown severity, Onset: Unknown) ? Past Medical History/Problem List No problems documented. ? Past Surgical History Colonoscopy with polypectomy: 04/27/21 ? Social History Alcohol Details:??Use: Never. Substance Abuse Details:??Use: Never. Tobacco Details:??Use: Former smoker, quit more than 30 days ago. ? Family History No family history recorded. ? Medications Home Medications Calcium And Vitamin D Combination (Calcium 600 +D oral tablet)?1?tab(s)?By Mouth?3 times a day Donepezil?By Mouth?Daily at bedtime Guaifenesin/Codeine (codeine-guaifenesin 10 mg-100 mg/5 ml oral syrup)?10?Milliliter?By Mouth?Every 4 hours?as needed?for cough Naproxen?500?Milligram?By Mouth?2 times a day?as needed?as needed for pain Oxycodone / Acetaminophen (Percocet-5/325 325 mg-5 mg oral tablet)?1 to 2 tablet?By Mouth?Every 4 hours?as needed?Pain , Severe Oxycodone / Acetaminophen (Percocet-5/325 325 mg-5 mg oral tablet)?2?tab(s)?By Mouth?Every 6 hours?as needed?for pain PEG Electrolyte Solution (PEG-3350 with Electrolytes (Eqv-GoLYTELY) oral powder for reconstitution)?See Instructions?Mix powder with water according to package intructions. ??Drink all of the prep fluid on the evening befoer your colonoscopy. Senna?1 tab?By Mouth?2 times a day ? Inpatient Medications Medications (2) Active SCHEDULED: (1) Ondansetron 2mg/mL Inj (2mL Vial) (Zofran Inj) ??4 mg, IV Push, Once CONTINUOUS: (1) NaCL 0.9% (1000 mL) Cont IV 1,000 mL (0.9% NaCL 1,000 mL) ??1,000 mL, IV Infusion, 100 mL/hr PRN: (0) ? Results Recent Labs BLOOD BANK Blood Type A Positive ()?? 11/23/2022 16:02 Antibody Screen Negative ()?? 11/23/2022 16:02 ?? BLOOD COUNT & DIFF WBC 7.5 k/mm3 ()?? 11/23/2022 16:07 RBC 4.70 m/mm3 ()?? 11/23/2022 16:07 Hgb 14.5 Gm/dL ()?? 11/23/2022 16:07 Hct 43.6 % ()?? 11/23/2022 16:07 MCV 92.8 femtoliters ()?? 11/23/2022 16:07 MCH 30.9 pg ()?? 11/23/2022 16:07 MCHC 33.3 g/dL ()?? 11/23/2022 16:07 Platelet Count 207 k/mm3 ()?? 11/23/2022 16:07 RDW-SD 42.7 femtoliters ()?? 11/23/2022 16:07 MPV 10.4 femtoliters ()?? 11/23/2022 16:07 Nucleated RBC (Automated) 0.0 #/100 WBC'S ()?? 11/23/2022 16:07 Abs. NRBC 0.0 k/mm3 ()?? 11/23/2022 16:07 Abs. Neut 6.2 k/mm3 ()?? 11/23/2022 16:07 Abs. Lymph 0.7 k/mm3 (Low)?? 11/23/2022 16:07 Abs. [place] 0.4 k/mm3 ()?? 11/23/2022 16:07 Abs. Eo 0.2 k/mm3 ()?? 11/23/2022 16:07 Abs. Baso 0.0 k/mm3 ()?? 11/23/2022 16:07 Neut % 82.3 % (High)?? 11/23/2022 16:07 Lymph % 9.6 % (Low)?? 11/23/2022 16:07 [place] % 4.8 % ()?? 11/23/2022 16:07 Eos % 2.8 % ()?? 11/23/2022 16:07 Baso % 0.4 % ()?? 11/23/2022 16:07 Imm Gran 0.1 % ()?? 11/23/2022 16:07 Abs. Imm Gran 0.0 k/mm3 ()?? 11/23/2022 16:07 ?? CARDIAC High Sensitivity Troponin (HSTnT) 13 ng/L ()?? 11/23/2022 16:07 ?? CHEM GENERAL Sodium 137 mmol/L ()?? 11/23/2022 16:07 Potassium 4.8 mmol/L ()?? 11/23/2022 16:07 Chloride 102 mmol/L ()?? 11/23/2022 16:07 Bicarbonate Level 27 mmol/L ()?? 11/23/2022 16:07 Anion Gap 8 ()?? 11/23/2022 16:07 Glucose Level 149 mg/dL (High)?? 11/23/2022 16:07 Glucose, POC 151 mg/dL (High)?? 11/23/2022 15:51 BUN 13 mg/dL ()?? 11/23/2022 16:07 Creatinine-Blood 1.0 mg/dL ()?? 11/23/2022 16:07 Estimated GFR Creatinine 84 ML/MIN/1.73 M2 ()?? 11/23/2022 16:07 Calcium 9.0 mg/dL ()?? 11/23/2022 16:07 AST (SGOT) 27 units/L ()?? 11/23/2022 16:07 ?? COAG INR 1.0 ()?? 11/23/2022 16:07 Protime (PT) 11.1 seconds ()?? 11/23/2022 16:07 APTT 24.6 seconds ()?? 11/23/2022 16:07 ? Blood Glucose Trend Glucose Level:??149 mg/dL??High (11/23/22 16:07:00) Glucose, POC:??151 mg/dL??High (11/23/22 15:51:00) ? Urinalysis?? No qualifying data available. ? Patient Care team information Care Team Personnel Name: Not on Staff, PCP Position: S Physician (General Medicine) Member Role: PCP Name: Antoine Parish Position: [facility] ED [facility] Member Role: Buffet Waiter/Waitress Name: Leslie Rees MD Position: [facility] ED Medicine MD Member Role: ED Attending Physician Address: Address: [address] [place] [address]- Name: Miller Crowell RN Position: [facility] ED RN W/OE and Tasks Member Role: Patient Care Provider Name: Delfino Walker MD Position: [facility] Resident Member Role: ED Resident Address: Address: [address] [place] [address]- Care Team Related Persons Name: KULWANT CURTIS Address: home [address], [place] Name: ISACC CURTIS Address: home [address], [place] Name: IVAN REECE Address: home [address], [place]
--- OUTSIDE RECORDS SUMMARY | 2023-11-08 18:13 | XMS_ITS | Continuity of Care Document ---
Author Organization [facility] Address [address] [place] [id number]- Care Team Providers Care Electronic Video Games Servicer Name Role Phone Matt Schumacher MD Primary Care Physician Encounter [facility] [place](s): 04/28/21 - 05/28/21 [facility] [address] [place] [id number]- [place] Allergies, Adverse Reactions, Alerts No Known Allergies [...] mL, 0 Refills, Maintenance, 04/26/21 9:12:00 EDT, [id number], Please fill with ANY... Start Date: 04/26/21 [...]
--- OUTSIDE RECORDS SUMMARY | 2023-11-08 18:13 | XMS_ITS | Continuity of Care Document ---
Author Organization [facility] Address [address] [place] [address]- Care Team Providers Care Weekend Anchor Name Role Phone Vicenta Ramírez MD Primary Care Physician En[place] [facility] [place]): 12/03/20 - 01/02/21 [facility] [address] [place] [id number]- Attending Physician: Erma Ayala Admitting Physician: Erma Ayala Referring Physician: Erma Ayala Allergies, Adverse Reactions, Alerts Substance Reaction Severity [...]
--- OUTSIDE RECORDS SUMMARY | 2023-11-08 18:13 | XMS_ITS | Continuity of Care Document ---
Author Organization [facility] Address [address] [place] [address]- Care Team Providers Care Carburizing Furnace Operator Name Role Phone Vicenta Ramírez MD Primary Care Physician [phone] [place] [facility] [place] 08/[place]/20 [facility]/[address] [address]- Attending Physician: Admtr, Erma Admitting Physician: Admtr, Erma Referring Physician: Admtr, [id number] Allergies, Adverse Reactions, Alerts Substance Reaction Severity [...] Refills, Maintenance Start Date: 01/26/11 Status: Ordered Percocet-5/325 325 mg-5 mg oral [...]
[2023-11-08 19:26] LABS: B Type Natriuretic Peptide 34 pg/mL (<100)
[2023-11-08 20:39] VITALS: BP 165/64; PULSE 60; RESP 16; TEMP 36.9; O2SAT 97
[2023-11-08 21:31] VITALS: BP 165/64; PULSE 60; RESP 16; TEMP 36.9; O2SAT 97
== END 2023-11-08 21:33 | disposition home or self-care (01) ==
PROVIDERS: Nurse Practitioner Family; Emergency Provider Internal Medicine
DX: S09.90XA Unspecified injury of head, initial encounter (principal); S20.214A Contusion of middle front wall of thorax, initial encounter; W18.39XA Other fall on same level, initial encounter; Z03.818 Encounter for observation for suspected exposure to other biological agents ruled out; R53.1 Weakness; J98.4 Other disorders of lung; Y93.89 Activity, other specified; Y92.007 Garden or yard of unspecified non-institutional (private) residence as the place of occurrence of the external cause; Y99.9 Unspecified external cause status
CPT/HCPCS: 0241U; 36415; 70450; 71250; 72125; 80053; 80307; 83735; 83880; 84484; 85025; 85610; 93005; 99284; 99285